=== PATIENT | female | born 1980 | race Caucasian/White ===

== ENCOUNTER 2021-06-14 13:25 | Emergency (ER) | payer OTHER, SELFPAY ==
--- NOTE | 2021-06-14 13:37 | ED.SKABFB ---
HPI - Skin/Abscess/Foreign Bdy General Chief complaint: Skin/Abscess/Foreign Body Stated complaint: Rash Time Seen by Provider: 06/14/21 13:37 Source: patient and RN notes reviewed Mode of arrival: ambulatory Limitations: no limitations History of Present Illness HPI narrative: 40-year-old female presents to the [facility] with complaints of generalized rash since Friday, 3 days. Had been taking Benadryl with no relief. Did a teleconference with her primary care provider who suggested she go to an urgent care or emergency room. Denies chest pain or shortness of breath. No lip or tongue swelling. Patient is unsure of what is called causing her rash. Denies any new creams, lotions, detergents. No new clothes or food. Related Data Home Medications Medication Instructions Recorded Confirmed hydrochlorothiazide 25 mg PO DAILY 09/01/19 06/14/21 Allergies Allergy/AdvReac Type Severity Reaction Status Date / Time propoxyphene Allergy Severe Dyspnea / Verified 06/14/21 14:08 SOB ketorolac Allergy Intermediate Hives Unverified 06/14/21 14:08 Contrast Media Allergy Severe Swelling Uncoded 06/14/21 14:08 Review of Systems Review of Systems: All systems reviewed & are unremarkable except as noted in HPI and below Constitutional: Constitutional: Reports no additional constitutional complaints, Denies chills and Denies fever(s) Eyes: Eyes: Reports no additional eye complaints ENT: Reports system reviewed and no additional complaints, except as documented, Denies dysphagia, Denies epistaxis and Denies sore throat Cardiovascular: Cardiovascular: Reports no additional cardiovascular complaints and Denies chest pain Respiratory: Respiratory: Reports no additional respiratory complaints, Denies chest congestion, Denies cough, Denies dyspnea and Denies wheezing Gastrointestinal: Gastrointestinal: Reports no additional gastrointestinal complaints, Denies abdominal pain, Denies nausea and Denies vomiting Genitourinary: Genitourinary: Reports no additional female genitourinary complaints Musculoskeletal: Musculoskeletal: Reports no additional musculoskeletal complaints Integumentary/Breasts: Skin/Breast: Reports as per HPI and Reports rash Neurologic: Reports system reviewed and no additional complaints, except as documented, Denies dizziness and Denies headache(s) Psychiatric: Psychiatric: Reports no additional psychiatric complaints Allergic/Immunologic: Allergic/Immunologic: Reports no additional allergic/immunologic complaints, Denies lip swelling, Denies throat swelling, Denies tongue swelling and Denies wheezing PMFSH Past Medical History Medical History (Updated 06/14/21 @ 18:03 by Saray Amaro) Hypertension Surgical History Surgical History (Updated 06/14/21 @ 18:03 by Saray Amaro) History of Social History Social History (Updated 06/14/21 @ 18:03 by Saray Amaro) Substance use: never Living arrangements: with family Gender identity (if verbalized by the patient): Female Comments At the time of my signature, I reviewed and agree with the nursing past medical, surgical, social, and family history. There is no relevant family history pertinent to the patient complaint. Exam Const: General: healthy appearing, no acute distress and alert Nutritional Appearance: well nourished Orientation/consciousness: patient oriented x3 Limitations: no limitations HENMT: Head: normal to inspection Ears: external ears normal, TM's normal bilaterally and EAC's normal Face and sinus: normal facial exam, sinuses nontender and no edema Mouth: Yes lip normal, Yes tongue normal, Yes moist mucous membranes and No muffled voice Throat: posterior oropharynx normal, tonsils normal and uvula midline Eyes: Conjunctivae: conjunctivae normal Pupils: Equal, round and reactive pupils present Neck: Neck: normal visual inspection, no lymphadenopathy and no meningeal signs Chest: Chest palpation & inspectio
[2021-06-14 13:38] VITALS: BP 149/92; PULSE 71; RESP 18; TEMP 36.4; O2SAT 100
[2021-06-14] MEDS: predniSONE 20 MG TABLET 60 MG PO (13:51)
== END 2021-06-14 14:02 | disposition home or self-care (01) ==
PROVIDERS: Emergency Provider Nurse Practitioner
DX: L50.9 Urticaria, unspecified (principal); I10 Essential (primary) hypertension
CPT/HCPCS: 99213; G0463; J7512

== ENCOUNTER 2021-10-08 18:21 | Emergency (ER) | payer OTHER, SELFPAY ==
[2021-10-08 18:39] VITALS: BP 142/93; PULSE 101; RESP 20; TEMP 36.7; O2SAT 100
--- NOTE | 2021-10-08 18:56 | ED.GENADULT ---
HPI - General Adult General Chief complaint: Upper Respiratory Infection Stated complaint: Fever,Sore Throat Source: patient Mode of arrival: ambulatory Limitations: no limitations History of Present Illness HPI narrative: 40 y/o female. PMHx HTN. Presents to [facility] clinic today with acute complaints of sore throat s/s, worsening in the past 4 days. She tells me that she has been exposed to her son at home, whom has had recent streptococcal sore throat. No fevers. No nuchal rigidity. Client denies dyspnea, dysphagia, involuntary drooling. She is without additional acute c/o illness upon PE. Related Data Home Medications Medication Instructions Recorded Confirmed hydrochlorothiazide 25 mg PO DAILY 09/01/19 10/08/21 Allergies Allergy/AdvReac Type Severity Reaction Status Date / Time propoxyphene Allergy Severe Dyspnea / Verified 10/08/21 18:37 SOB ketorolac Allergy Intermediate Hives Unverified 10/08/21 18:37 Contrast Media Allergy Severe Swelling Uncoded 10/08/21 18:37 Review of Systems Review of Systems: CONSTITUTIONAL: Denies fever, chills, sweats. EYES: Denies visual changes, redness, discharge. ENT: Denies rhinorrhea, congestion, otalgia. Positive sore throat. CARDIOVASCULAR: Denies chest pain, palpitations, edema. RESPIRATORY: Denies dyspnea, wheezing, cough GASTROINTESTINAL: Denies abdominal pain, nausea, vomiting, diarrhea. GENITOURINARY: Denies dysuria, hematuria, abnormal discharge SKIN: Denies rash or itching. MUSCULOSKELETAL: Denies acute back pain, joint pain, or myalgia. NEUROLOGIC: Denies numbness, or focal weakness. PSYCHIATRIC: Denies anxiety or depression. All systems reviewed & are unremarkable except as noted in HPI and below PMFSH Past Medical History Medical History Hypertension Surgical History Surgical History History of Social History Social History Substance use: never Gender identity (if verbalized by the patient): Female Exam Narrative: GENERAL: This is a well-nourished, well-developed adult, in no apparent distress. HEAD: normocephalic, atraumatic. EYES: PERRL. Sclera clear/white. EARS: External ears normal, auditory canals clear and without drainage, TMs normal. NOSE: External nose normal. Positive Rhinorrhea, no obstruction, nares patent. THROAT: Mucous membranes moist, posterior pharynx cis erythematous, with mild exudative changes. No airway swelling or distress. NECK: Neck supple, non-tender without lymphadenopathy, masses or thyromegaly. CARDIOVASCULAR: Regular rate and rhythm without murmurs, gallops, or rubs. RESPIRATORY: Clear to auscultation. Breath sounds equal bilaterally. No wheezes, rales, or rhonchi. GASTROINTESTINAL: Abdomen soft, non-tender, nondistended. Bowel sounds are active. No guarding. SKIN: warm, intact with no suspicious lesions or rash, good texture and turgor. NEURO: Alert, active, and age appropriate. No focal neurologic deficits. EXTREMITIES: Negative. Course Course Level of Care: Express Care Visit Vital Signs Vital signs: Vital Signs Temperature 36.7 C 10/08/21 18:39 Pulse Rate 101 H 10/08/21 18:39 Respiratory Rate 20 10/08/21 18:39 Blood Pressure 142/93 H 10/08/21 18:39 Pulse Oximetry 100 10/08/21 18:39 Temperature 36.7 C 10/08/21 18:39 Pulse Rate 101 H 10/08/21 18:39 Respiratory Rate 20 10/08/21 18:39 Blood Pressure 142/93 H 10/08/21 18:39 Pulse Oximetry 100 10/08/21 18:39 The patient has been informed that they may have pre-hypertension or Hypertension based on a BP reading in the clinic. It is recommended that the patient call the primary care provider listed on their discharge instructions or a physician of their choice as soon as possible (within 1-2week) to arrange follow up for further evalu
== END 2021-10-08 19:10 | disposition home or self-care (01) ==
PROVIDERS: Emergency Provider Nurse Practitioner Adult Health; PCP Internal Medicine
DX: J02.9 Acute pharyngitis, unspecified (principal); I10 Essential (primary) hypertension
CPT/HCPCS: 87081; 87880; 99213; G0463

== ENCOUNTER 2022-04-17 16:34 | Emergency (ER) | payer OTHER, SELFPAY ==
--- NOTE | ~2022-04-17 | XR_ITS ---
EXAM: [id number] DATE: 04/17/2022 17:08 HISTORY: pain rt posterior ribs with deep inspiration. NO INJURY . COMPARISON: None available. FINDINGS: Clear lungs. Normal cardiomediastinal silhouette. Normal mineralization. No fracture or di slocation. No lytic or blastic lesion. Joint spaces are maintained. No erosion or periosteal change. Soft tissues within normal limits. IMPRESSION: No acute osseous finding in the right ribs. Reviewed, dictated and finalized at location K.
[2022-04-17 16:40] VITALS: BP 131/90; PULSE 71; RESP 16; TEMP 36.2; O2SAT 100
--- NOTE | 2022-04-17 16:41 | ED.BACK ---
HPI - Back Pain/Injury General Chief Complaint: Back Pain/Injury Stated Complaint: Upper Middle Back Pain Time Seen by Provider: 04/17/22 16:41 Source: patient and RN notes reviewed History of Present Illness HPI Narrative: Patient is a 41-year-old female who presents the urgent care with complaints of right-sided upper back pain. Patient states that she has been walking more recently but denies of any trauma, injury, or strenuous activity. Patient has not taken anything [id number] for her symptoms. States that she woke up with the pain this morning. States that it hurts worse with movement and deep breathing. Denies of chest pain or shortness of breath. Denies of any upper respiratory symptoms. No other acute complaints. No acute distress noted. Patient aware of the plan of care. Some parts of this dictation were generated by voice recognition software and may contain typographical and/or grammatical inaccuracies. Related Data Home Medications Medication Instructions Recorded Confirmed hydrochlorothiazide 25 mg tablet 12.5 mg PO DAILY 09/01/19 04/17/22 Allergies Allergy/AdvReac Type Severity Reaction Status Date / Time propoxyphene Allergy Severe Dyspnea / Verified 04/17/22 16:36 SOB ketorolac Allergy Intermediate Hives Verified 04/17/22 16:36 Contrast Media Allergy Severe Swelling Uncoded 04/17/22 16:36 Review of Systems Review of Systems: CONSTITUTIONAL: Denies fever, chills, or sweats. EYES: Denies visual changes, redness, or discharge. ENT: Denies rhinorrhea, congestion, sore throat, or otalgia. CARDIOVASCULAR: Denies chest pain, palpitations, or edema. RESPIRATORY: Denies cough or dyspnea. GASTROINTESTINAL: Denies abdominal pain, nausea, vomiting, or diarrhea. GENITOURINARY: Denies dysuria or hematuria. SKIN: Denies rash or itching. MUSCULOSKELETAL: Reports of upper right back discomfort NEUROLOGIC: Denies headache, numbness, or weakness. All other systems reviewed are negative, except as documented in HPI. REPLACED BY [facility] Past Medical History Medical History Hypertension Surgical History Surgical History History of Social History Social History Substance use: never Gender identity (if verbalized by the patient): Female Comments At the time of my signature, I reviewed and agree with the nursing past medical, surgical, social, and family history. There is no relevant family history pertinent to the patient complaint. Exam Narrative: GENERAL: This is a well-nourished, well-developed patient, in no apparent distress. HEAD: normocephalic, atraumatic. EYES: PERRL. Sclera clear/white. Vision is grossly intact. EARS: External ears normal NOSE: External nose normal with no obvious nasal discharge, nares without redness, no rhinorrhea. THROAT: Mucous membranes moist NECK: Neck supple CARDIOVASCULAR: Regular rate and rhythm without murmurs, gallops, or rubs. RESPIRATORY: Clear to auscultation. Breath sounds equal bilaterally. No wheezes, rales, or rhonchi. SKIN: warm, intact with no suspicious lesions or rash, good texture and turgor. NEURO: awake, alert, and oriented to person, place and time. There were no obvious focal neurologic abnormalities. EXTREMITIES: No clubbing, cyanosis, or edema. BACK: Nontender without deformity or crepitance. No flank tenderness. Increased right mid back pain increased with deep breathing Course Course Level of Care: Express Care Visit Vital Signs Vital signs: Vital Signs Temperature 97.2 F L 04/17/22 16:40 Pulse Rate 71 04/17/22 16:40 Respiratory Rate 16 04/17/22 16:40 Blood Pressure 131/90 04/17/22 16:40 Pulse Oximetry 100 04/17/22 16:40 Oxygen Delivery Room Air 04/17/22 16:40 Temperature 97.2 F L 04/17/22 16:40 Pulse Rate 71 04/17/22 16:40 Respiratory
== END 2022-04-17 17:20 | disposition home or self-care (01) ==
PROVIDERS: Emergency Provider Nurse Practitioner Family
DX: S29.012A Strain of muscle and tendon of back wall of thorax, initial encounter (principal); X58.XXXA Exposure to other specified factors, initial encounter; I10 Essential (primary) hypertension; Z86.16 Personal history of COVID-19
CPT/HCPCS: 71101; 99213; G0463

== ENCOUNTER 2023-08-31 16:37 | Emergency (ER) | payer OTHER, SELFPAY ==
[2023-08-31 16:44] VITALS: BP 167/97; PULSE 86; RESP 20; TEMP 36.2; O2SAT 99
--- NOTE | 2023-08-31 17:08 | ED.GENADULT ---
HPI - General Adult General Chief complaint: Ear Stated complaint: ear inf Source: patient Mode of arrival: ambulatory Limitations: no limitations History of Present Illness HPI narrative: Patient presents for evaluation of bilateral ear pain for last week. She reports tinnitus in both ears and muffled hearing on the right. She states she has a hx of environmental allergies and has had similar symptoms in the past. She does take oral allergy medication and nasonex but they do not seem to be helping at this time. No recent smoke exposure. No travel that would involve change in elevation. In terms of tinnitus, she is on hctz. She denies any fever, chills, sore throat, cough or other infectious symptoms. Related Data Home Medications Medication Instructions Recorded Confirmed hydrochlorothiazide 25 mg tablet 25 mg PO DAILY 09/01/19 04/17/22 Allergies Allergy/AdvReac Type Severity Reaction Status Date / Time propoxyphene Allergy Severe Dyspnea / Verified 04/17/22 16:36 SOB ketorolac Allergy Intermediate Hives Verified 04/17/22 16:36 red dye Allergy Unknown Verified 08/31/23 17:03 Sulfa (Sulfonamide Allergy Unknown Verified 08/31/23 17:03 Antibiotics) Contrast Media Allergy Severe Swelling Uncoded 04/17/22 16:36 Review of Systems Review of Systems: CONSTITUTIONAL: Denies fever, chills, or sweats. EYES: Denies visual changes, redness, or discharge. ENT: Reports bilateral ear pain and tinnitus. Reports muffled hearing on the right. CARDIOVASCULAR: Denies chest pain, palpitations, or edema. RESPIRATORY: Denies cough or dyspnea. GASTROINTESTINAL: Denies abdominal pain, nausea, vomiting, or diarrhea. GENITOURINARY: Denies dysuria or hematuria. SKIN: Denies rash or itching. MUSCULOSKELETAL: Denies back pain, joint pain, or myalgia. NEUROLOGIC: Denies headache, numbness, dizziness, or weakness. PSYCHIATRIC: Denies anxiety or depression. [facility] Past Medical History Medical History Hypertension Surgical History Surgical History History of Family History Family History (Updated 08/31/23 @ 17:19 by MENDY Rizzo, ) Mother Family history non-contributory Social History Social History Smoking status: Never smoker Substance use: never Living arrangements: with family Gender identity (if verbalized by the patient): Female Spiritual care concerns: No Exam Narrative: GENERAL: Well-appearing, well-nourished, and in no acute distress. HEAD: Normocephalic, atraumatic. EYES: PERRLA and EOMI. ENT: Nares clear, no rhinorrhea or epistaxis. Mucous membranes moist. Oropharynx without tonsillar hypertrophy exudate or other lesions. Left tympanic membrane normal with some left-sided middle ear fluid. Unable to visualize right tympanic membrane due to cerumen impaction. NECK: Supple. No adenopathy or masses. No carotid bruits or JVD CHEST: Clear to auscultation. No respiratory distress. No wheezes rales or rhonchi HEART: Regular rate and rhythm. No murmur heard. Normal peripheral pulses. ABDOMEN: Soft, nontender, nondistended, normal active bowel sounds. EXTREMITIES: Normal range of motion. No edema. SKIN: Warm, dry, no rash. NEURO: No focal deficits. Alert and oriented x3. PSYCH: Normal mood and affect. Course Course Emergency Course: This is a 42-year-old female who presented for evaluation bilateral ear pain hand tinnitus. She initially had a cerumen impaction which was removed in she tolerated well. Right tympanic membrane slightly bulging but not erythematous. She likely has eustachian tube dysfunction. Continue with Nasonex. Sudafed may help. Will give her a script for Augmentin in the event that she has an early otitis media. Hydrochlorothiazide may be contributory to tinnitus.
== END 2023-08-31 17:13 | disposition home or self-care (01) ==
PROVIDERS: Emergency Provider Nurse Practitioner
DX: H61.21 Impacted cerumen, right ear (principal); H93.11 Tinnitus, right ear; H69.91 Unspecified Eustachian tube disorder, right ear; I10 Essential (primary) hypertension
CPT/HCPCS: 69210; 99213; G0463